=== PATIENT | male | born 1995 | race Caucasian/White ===

== ENCOUNTER 2019-04-18 01:50 | Inpatient (IN) | payer MEDICAID, OTHER ==
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
[2019-04-18 05:11] LABS: Amphetamine Screen,Urine Not Detected (NotDetected); Barbiturate Screen,Urine Not Detected (NotDetected); Benzodiazepines Screen,Urine Not Detected (NotDetected); Cocaine Screen,Urine Not Detected (NotDetected); Methadone Screen, Urine Not Detected (NotDetected); Opiate Screen,Urine Not Detected (NotDetected); Oxycodone Screen, Urine Not Detected (NotDetected); Phencyclidine Screen,Urine Not Detected (NotDetected); Tricyclic Antidepressant,Urine Not Detected (NotDetected); Urn Cannabinoid Scrn Not Detected (NotDetected)
[2019-04-18] MEDS ORDERED: MAGNESIUM HYDROXIDE 2,400 MG/10 ML CUP PO PRN (05:35)
[2019-04-18] MEDS ORDERED: MAG HYDROX/AL HYDROX/SIMETH 30 ML CUP PO PRN (05:35)
[2019-04-18] MEDS ORDERED: LORazepam 1 MG TAB PO PRN (05:35)
[2019-04-18] MEDS ORDERED: ACETAMINOPHEN TAB 325 MG TAB PO PRN (05:35)
[2019-04-18 05:53] VITALS: BMI 26.2
[2019-04-18] MEDS ORDERED: LORazepam 2 MG/ML INJ IM PRN (06:01)
[2019-04-18 09:35] LABS: Basophils % (A) 0 %; Eosinophils # (A) 0.1 k/uL (0-0.7); Eosinophils % (A) 2 %; HCT 48.9 % (39.0-53.0); HGB 16.1 gm/dL (13.0-17.5); Lymphocytes # (A) 1.6 k/uL (1.0-4.8); Lymphocytes % (A) 26 %; MCH 28.8 pg (25.0-35.0); MCHC 32.8 g/dL (31.0-37.0); MCV 87.6 fL (80.0-100.0); Mean Platelet Volume 6.8; Monocytes # (A) 0.4 k/uL (0-1.0); Monocytes % (A) 6 %; Neutrophils # (A) 3.9 k/uL (1.3-7.7); Neutrophils % (A) 64 %; Platelet Count 210 k/uL (150-450); RBC 5.58 m/uL (4.30-5.90); WBC 6.2 k/uL (3.8-10.6)
[2019-04-18 09:43] LABS: ALT 25 U/L (21-72); AST 21 U/L (17-59); Albumin 4.7 g/dL (3.5-5.0); Alkaline Phosphatase 58 U/L (38-126); Anion Gap 7 mmol/L; Blood Urea Nitrogen 12 mg/dL (9-20); Calcium 9.7 mg/dL (8.4-10.2); Carbon Dioxide 29 mmol/L (22-30); Chloride 105 mmol/L (98-107); Glucose 103 mg/dL (74-99); Potassium 4.5 mmol/L (3.5-5.1); Sodium 141 mmol/L (137-145); Total Bilirubin 0.4 mg/dL (0.2-1.3); Total Protein 7.4 g/dL (6.3-8.2)
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
[2019-04-19] MEDS: ESCITALOPRAM 10 MG TAB PO SCH (10:55)
--- NOTE | 2019-04-19 10:58 | P.PN ---
Progress Note - Text Interval history: The patient is found in the hallway he follows me to an interview room. He states that his mood is better. He had visits from his parents his brother [id number] and his now ex-girlfriend. He does feel supported by family. He is hoping to set up a support meeting involving them today or tomorrow. Staff report that the patient has been attending groups and has been cooperative and pleasant. He has no questions regarding the Lexapro. Mental status exam: The patient is alert he has good hygiene grooming eye c ontact is appropriate. He is cooperative throughout the interaction. He states his mood is much improved. He feels safe here. No homicidal ideation intent or plan. He reports no auditory or visual hallucinations or any specific delusions. There is no observed evidence of psychosis. He demonstrates no verbal or physical aggressiveness. Insight and judgment improving. He is oriented to person place and date. Affect is euthymic and appropriately expressive. Plan: The patient will continue on the Lexapro 10 mg daily. Social work will facilitate a support meeting involving his family. If he demonstrates continued clinical stability/improvement I anticipate discharging him tomorrow. Vital signs reviewed.
[2019-04-20 06:42] LABS: Appearance,Urine Clear (Clear); Bilirubin,Urine Negative (Negative); Blood,Urine Negative (Negative); Color,Urine Yellow; Glucose,Urine (UA) Negative (Negative); Ketones,Urine Negative (Negative); Leukocyte Esterase,Urine Negative (Negative); Nitrite,Urine Negative (Negative); PH, Urine 5.5 (5.0-8.0); Protein,Urine Negative (Negative); Specific Gravity,Urine 1.034 (1.001-1.035); Urobilinogen,Urine <2.0 mg/dL (<2.0)
[2019-04-20 07:26] VITALS: BP 140/89; PULSE 59; RESP 13; TEMP 97.6
[2019-04-20] MEDS: ESCITALOPRAM 10 MG TAB PO SCH (09:22)
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
== END 2019-04-20 13:40 | disposition home or self-care (01) | DRG 885 ==
LOC: EC 01:50 → 3MHU 05:22
PROVIDERS: ADMIT Psychiatry & Neurology Psychiatry; ATTEND Psychiatry & Neurology Psychiatry
DX: F32.2 Major depressive disorder, single episode, severe without psychotic features (principal); Z60.2 Problems related to living alone; Z81.8 Family history of other mental and behavioral disorders; Z82.69 Family history of other diseases of the musculoskeletal system and connective tissue
CPT/HCPCS: 80053; 80306; 81003; 82075; 84443; 85025; 99285